=== PATIENT | male | born 1940 | race Caucasian/White ===

== ENCOUNTER 2017-02-21 13:36 | Inpatient (IN) | payer MEDICARE ==
[~2017-02-21] VITALS: Ht 180.3 cm; Wt 129.8 kg
[2017-03-17] MEDS ORDERED: CARV6.252 PO (09:30)
[2017-03-17] MEDS ORDERED: APIX2.5T PO (09:31)
[2017-03-17] MEDS ORDERED: MONT10TA2 PO (09:32)
[2017-03-17] MEDS ORDERED: LIPI20TA PO (09:32)
[2017-03-17] MEDS ORDERED: FLUT1INH INH (09:33)
[2017-03-17] MEDS ORDERED: ALBUAER3 INH (09:33)
[2017-03-17] MEDS ORDERED: RIVA1.5C PO (09:33)
[2017-03-20] MEDS ORDERED: TAMS5CAP PO (10:01)
[2017-03-20] MEDS ORDERED: AMIO200T PO (13:45)
[2017-03-20] MEDS ORDERED: MIRA25TA PO (13:45)
[2017-03-20] MEDS ORDERED: COLA100C PO (13:46)
[2017-03-27] MEDS ORDERED: METOPROLOL TARTRATE 25 MG TAB PO PRN (05:45)
[2017-03-27] MEDS ORDERED: CHLORHEXIDINE GLUCONATE 2 % 1 PACK (2 CLOTHS) TOPICAL PRN (05:45)
[2017-03-27] MEDS ORDERED: CHLORHEXIDINE GLUCONATE 4% SOLN 120 ML BTL TOPICAL SCH (05:45)
[2017-03-27] MEDS ORDERED: INSULIN HUMAN REGULAR 1,000 UNITS/10 ML VIAL SQ PRN (05:45)
[2017-03-27] MEDS ORDERED: POVIDONE IODINE 5% (ANTISEPSIS KIT) 4 APPLICATIONS EACH NARE PRN (05:45)
[2017-03-27] MEDS ORDERED: SODIUM CHLORID 0.9% 500 ML IV PRN (05:45)
[2017-03-27] MEDS ORDERED: ceFAZolin 2 GM PREMIX 50 ML IV SCH (05:45)
[2017-03-27] MEDS ORDERED: LACTATED RINGER'S 1000 ML IV PRN (05:45)
[2017-03-27 06:00] VITALS: BP 152/84; PULSE 70; RESP 20; TEMP 97.7; O2SAT 96
[2017-03-27] MEDS ORDERED: EXPAREL PERI-ARTICULAR INJECTION (TOTAL VOL. 100 ML) P-ARTICULR SCH ×2 (06:00)
[2017-03-27] MEDS ORDERED: TRANEXAMIC ACID INJ 1,161 MG in SODIUM CHLORIDE 0.9% INJ 100 ML IV SCH ×2 (06:00→09:00)
[2017-03-27] MEDS ORDERED: GENTAMICIN SULFATE 80 MG/2 ML VIAL ONE (06:16)
[2017-03-27] MEDS ORDERED: ACETAMINOPHEN 1000 MG/100 ML VIAL IV ONE (06:22)
[2017-03-27] MEDS ORDERED: DEXAMETHASONE SOD PHOS 4 MG/ML VIAL ONE (06:23)
[2017-03-27] MEDS ORDERED: FAMOTIDINE 20 MG/2 ML VIAL ONE (06:23)
[2017-03-27] MEDS ORDERED: SODIUM CHLORIDE 0.9% FLUSH 5 ML FLUSH IVF PRN (07:00)
[2017-03-27] MEDS ORDERED: ONDANSETRON HCL 4 MG/2 ML VIAL IVP PRN (07:00)
[2017-03-27] MEDS ORDERED: MAGNESIUM HYDROXIDE SUSP 30 ML CUP PO PRN (07:00)
[2017-03-27] MEDS ORDERED: TRANEXAMIC ACID INJ 0 MG in SODIUM CHLORIDE 0.9% INJ 100 ML IV SCH (07:00)
[2017-03-27] MEDS ORDERED: Post-op Orders (for Pharmacy) MISC XX ONE (07:00)
[2017-03-27] MEDS ORDERED: ZOLPIDEM TARTRATE 5 MG TAB PO PRN (07:00)
--- NOTE | 2017-03-27 07:02 | HHI.FF ---
Face to Face Verification Diagnosis: (1) Status post total right knee replacement Physical Therapy Knee: Total knee, Protocol: Right, Gait training, Full weight bearing Right LE Weight Bearing: WB as tolerated Right LE Range of Motion: Active ROM (AROM, AAROM, PROM, PRE. ROM goal is 0 to 135 degrees. ROM in OR was 0 to 140 degrees.) Nursing Nursing: Dressing changes Dressing Changes: Daily dressing change, Coverderm/Primapore Additional Instructions Remove steristrips on postop day 14. I have seen patient Ned Fortune on 03/27/17. My clinical findings support the need for the requested home health care services because: Ltd mobility - disease progression Limited ability to care for self High risk of falls I certify that my clinical findings support that this patient is homebound because: Post-op weakness Unsteady gait/balance Unsafe to leave home unassisted Scar Rodas MD (Charles) Mar 27, 2017 07:02
[2017-03-27] MEDS ORDERED: MORPHINE SULFATE 8 MG/ML INJ IV PUSH PRN (08:00)
[2017-03-27] MEDS ORDERED: ALBUTEROL SULFATE 90 MCG/ACT HFA 18 GM INHALER INH PRN (08:00)
[2017-03-27] MEDS: RIVASTIGMINE TARTRATE 1.5 MG CAP PO SCH ×2 (09:00→18:00)
[2017-03-27] MEDS: CARVEDILOL 6.25 MG TAB PO SCH ×2 (09:00→21:15)
[2017-03-27] MEDS: FLUTICASONE 100 MCG/VILANTEROL 25 MCG INHALER INH SCH (09:00)
[2017-03-27] MEDS: TOLTERODINE TARTRATE 2 MG CAP LA PO SCH (09:00)
[2017-03-27] MEDS: DOCUSATE SODIUM 100 MG CAP PO SCH (09:00)
[2017-03-27] MEDS: AMIODARONE 200 MG TAB PO SCH (09:00)
[2017-03-27] MEDS ORDERED: BUPIVACAINE HCL PF 0.5% 30 ML VIAL NERV BLOCK ONE (10:05)
[2017-03-27] MEDS ORDERED: DO NOT ADM ANY ANTICOAGULANT DRUGS PRN (10:09)
[2017-03-27] MEDS ORDERED: fentaNYL CITRATE 250 MCG/5 ML AMP ONE ×2 (10:36→10:37)
[2017-03-27] MEDS ORDERED: *morphine SULFATE 8 MG/ML PERIprocedure ONLY ONE ×2 (10:36→11:06)
[2017-03-27] MEDS ORDERED: MIDAZOLAM HCL 2 MG/2 ML VIAL ONE (10:36)
[2017-03-27] MEDS: LACTATED RINGER'S 1000 ML INJ 1,000 ML IV SCH ×2 (10:40→21:16)
[2017-03-27] MEDS: SODIUM CHLORIDE 0.9% FLUSH 5 ML FLUSH IVF SCH ×2 (10:40→21:15)
--- NOTE | 2017-03-27 10:51 | MP ---
cc: Deniz MONDRAGON. DATE OF SURGERY: 03/27/2017 PREOPERATIVE DIAGNOSIS Primary osteoarthritis, right knee POSTOPERATIVE DIAGNOSIS Primary osteoarthritis, right knee. OPERATION PERFORMED Right total knee arthroplasty with Josephine Triathlon prosthesis (uncemented). SURGEON Kong Mondragon MD COUNTY SUPERVISOR DEBI Vargas ANESTHESIA Attempted spinal with adductor canal block and general endotracheal anesthesia and local. INDICATIONS AND FINDINGS This 76-year-old man has had right knee pain at least for the past five months with progressive worsening of his pain and limitation of ambulation to about one block. He has stiffness and pain on motion. He has lateral pain more than medial. There is increased warmth, clicking, catching, giving-way and difficulty standing from a seated position. Treatment has included nonsteroidal anti-inflammatory agents, activity modification, analgesics, physical therapy and the use of ambulatory aids. This has not helped him. Imaging studies showed severe arthritis in the right knee going to [id number] in the lateral compartment on the PA flexion view especially. There is eburnation and posterior degeneration. Also noted is some vascular calcification in the popliteal vessels. Operative findings are consistent with the radiographic findings with there being severe arthritis in the lateral compartment down to exposed subchondral bone, especially posteriorly in the tibia. There is also some change in the medial compartment more than the patellofemoral compartment. The medial meniscus was macerated. The prosthesis used was a Josephine Triathlon prosthesis with the femur being a size 7 cruciate-retaining right Press-Fit femur, the tibial baseplate being a tritanium Press-Fit baseplate size 7, the spacer being an 11 mm cruciate-retaining X3 polyethylene spacer, and the patella being a Triathlon tritanium asymmetric patella size 38 x 11. PROCEDURE The patient was brought to the operating room and an adductor canal block was accomplished. An attempt at a spinal anesthetic was unsuccessful therefore a general endotracheal anesthetic was administered. He received prophylactic antibiotics in the form of Ancef 3 grams on arrival in the operating room and also received tranexamic acid. He was placed into a supine position on the operating table. A small bolster was under the right hip. A pneumatic tourniquet was placed about the upper right thigh but was not inflated during the procedure. The limb was then prepped with alcohol, Hibiclens and ChloraPrep and draped in the usual manner with the knee draped free. An appropriate timeout procedure was carried out. Local anesthesia was administered into the incision site prior to making the incision. The incision was then made from about three fingerbreadths above the superior medial pole of the patella down to the tibial tubercle. The incision was deepened through the subcutaneous tissues to the retinacular structures which were exposed medially and laterally. A medial retinacular incision was made from the superior medial pole of the patella down to the tibial tubercle and extended proximally splitting the quadriceps in the middle one-third. The patella was reflected. Medial and lateral dissection was carried out. The anterior cruciate ligament was excised. Medial and lateral meniscectomies were initiated. The infrapatellar fat pad was debulked. The posterior surface of the patella was excised with the oscillating saw. The patella protector was applied. The patella was slipped in the lateral gutter. The fenestration in the distal femur was then made with a drill followed by the proximal tibial fenestration for intermedullary referencing guides. The distal femoral cutting guide and jig were assembled for a 5-degree, 8 mm cut. The cutting block was stabilized with pins. The jig was removed. The distal femoral cut was completed with the oscillating saw taking care to prevent injury to ligamentous and neurovascular structures. The sizing guide was then positioned in place along Lakeland's line in the epicondylar axis. The size was determined to be a size 7. The four-in-one cutting block was positioned in place and stabilized with pins. Anterior and posterior cuts were made followed by posterior and anterior chamfer cuts. Osteophytes were trimmed. Medial and lateral meniscectomies were completed. The proximal tibial cutting guide and jig were then assembled and positioned appropriately for rotation. The jig was stabilized with pins. Cutting guide was positioned in place with the stylus off the lateral side. The cutting block was stabilized with pins. The depth of cut was verified and adjusted. The proximal tibial cut was then completed with the oscillating saw taking care to prevent injury to neurovascular and ligamentous structures. After the proximal tibia had been removed the spacer block determined this to be an 11 mm spacer. The tibial baseplate trial size 7 was chosen with an 11 mm spacer. With this in place the femoral component was impacted into place. The patella drill holes were made followed by placement of the trial patella. The knee was taken through a range of motion which was easily 0 degree extension to 140 degrees of flexion with excellent stability throughout the range. A minor release of the lateral retinaculum allowed the patella to track more centrally. The patella trial was removed. The femoral drill holes were made. The femoral trial was removed. The tibial spacer was removed. The bone plugs were placed in the distal femur and proximal tibia. The proximal tibial punch was impacted through its guide and then removed. The tibial drill guide was positioned and drill holes made. Local anesthesia was administered throughout the knee with bupivacaine liposomal. The tibial component was then impacted into place and seated appropriately after cleaning the cut ends of bone with pulse lavage. The spacer was inserted and impacted into place. The femoral component was then impacted into place and seated appropriately. The patella was positioned in place and tightened with the patella vise. The knee was taken through a range of motion. This was easily 0 degrees extension to 140 degrees of flexion. Drains were brought out the superolateral aspect of the suprapatellar pouch. Wound closure then commenced using 0 Vicryl interrupted [id number] sutures for closure of the retinacular and capsular structures as well as other fascial structures, 2-0 Vicryl interrupted simple sutures with buried knots for the subcutaneous tissues and 4-0 Monocryl continuous subcuticular closure for the skin. The wound was dressed with Steri-Strips followed by dry dressing, sterile Sof-Rol, cooling pad, further sterile Sof-Rol and Chase bandage from the base of the toes to mid thigh. The patient was transferred to the recovery room in satisfactory condition having tolerated the procedure well. Counts were correct. Specimens none. Estimated blood loss 300 mL. MD SHEY Herrera/CELESTINE /9:59 AM /10:39 AM
[2017-03-27] MEDS: KETOROLAC TROMETHAMINE 30 MG/ML (IVP) VIAL IVP SCH ×3 (11:24→21:17)
--- NOTE | 2017-03-27 11:36 | RADRPT ---
EXAM DATE/TIME: 03/27/2017 11:09 [facility] COMPARISON: No previous studies available for comparison. INDICATIONS : Right knee replacement. MEDICAL HISTORY : Carcinoma, prostatic. Chronic obstructive pulmonary disease. Osteoarthritis. SURGICAL HISTORY : Pacemaker. Appendectomy. ENCOUNTER: Initial ACUITY: 1 day PAIN SCORE: Non-responsive. LOCATION: Right knee. FINDINGS: Two view examination of the right knee demonstrates knee arthroplasty. No evidence of hardware loosen ing, fracture or dislocation. Surgical drain in place. Vascular calcifications. CONCLUSION: Right knee arthroplasty. Isidoro Sena MD on March 27, 2017 at 11:34 Board Certified Radiologist. This report was verified electronically.
[2017-03-27] MEDS ORDERED: PROPOFOL 200 MG/20 ML AMP IV ONE (12:23)
[2017-03-27] MEDS ORDERED: NEOSTIGMINE 3 MG/3 ML SYR IV ONE (12:23)
[2017-03-27] MEDS ORDERED: LACTATED RINGER'S 1000 ML INJ 1,000 ML IV ONE (12:24)
[2017-03-27] MEDS ORDERED: ONDANSETRON HCL 4 MG/2 ML VIAL IV PUSH ONE (12:24)
[2017-03-27] MEDS ORDERED: *ONDANSETRON 4 MG VIAL PERIprocedural Use ONLY ONE (14:30)
[2017-03-27 16:18] VITALS: BP 151/69; PULSE 70; RESP 18; TEMP 95.5; O2SAT 92
--- NOTE | 2017-03-27 18:24 | PD.CONS ---
HPI Service [facility] Consult Requested By Dr. Rodas Reason for Consult Medical management Primary Care Physician Jase Dixon MD Diagnoses: History of Present Illness This a pleasant 76-year-old white male with significant past medical history of A. fib, CHF, AICD pacemaker, TIA, PARTS ANALYST shunt, prostate cancer. Patient has history of osteoarthritis of the right knee, he was admitted and underwent right total knee arthroplasty. Patient tolerated procedure well, he has minimal pain. Patient's draw press operator is Dr. Mary, he was cleared for surgery. Patient is on Eliquis, he stopped medication several days in preparation for surgery. Hospitalist services are requested for medical management. Review of Systems Constitutional: DENIES: Diaphoretic episodes, Fatigue, Fever, Weight gain, Weight loss, Chills, Dizziness, Change in appetite, Night Sweats Endocrine: DENIES: Heat/cold intolerance, Polydipsia, Polyuria, Polyphagia Eyes: DENIES: Blurred vision, Diplopia, Eye inflammation, Eye pain, Vision loss , Photosensitivity, Double Vision Ears, nose, mouth, throat: DENIES: Tinnitus, Hearing loss, Vertigo, Nasal discharge, Oral lesions, Throat pain, Hoarseness, Ear Pain, Running Nose, Epistaxis, Sinus Pain, Toothache, Odynophagia Respiratory: DENIES: Apneas, Cough, Snoring, Wheezing, Hemoptysis, Sputum production, Shortness of breath Cardiovascular: DENIES: Chest pain, Palpitations, Syncope, Dyspnea on Exertion , PND, Lower Extremity Edema, Orthopnea, Claudication Gastrointestinal: DENIES: Abdominal pain, Black stools, Bloody stools, Constipation, Diarrhea, Nausea, Vomiting, Difficulty Swallowing, Anorexia Genitourinary: DENIES: Sexual dysfunction, Urinary frequency, Urinary incontinence, Urgency, Hematuria, Dysuria, Nocturia, Penile Discharge, Testicular Pain, Testicular Swelling Musculoskeletal: COMPLAINS OF: Joint pain Integumentary: DENIES: Abnormal pigmentation, Nail changes, Pruritus, Rash Hematologic/lymphatic: DENIES: Bruising, Lymphadenopathy Immunologic/allergic: DENIES: Eczema, Urticaria Neurologic: DENIES: Abnormal gait, Headache, Localized weakness, Paresthesias, Seizures, Speech Problems, Tremor, Poor Balance Psychiatric: DENIES: Anxiety, Confusion, Mood changes, Depression, Hallucinations, Agitation, Suicidal Ideation, Homicidal Ideation, Delusions Past Family Social History Past Medical History Hypertension A. fib CHF AICD and pacemaker TIA PARTS ANALYST shunt Prostate cancer Osteoarthritis asthma COPD Past Surgical History AICD and pacemaker insertion Appendectomy Left wrist surgery PARTS ANALYST shunt insertion Reported Medications Reported Meds & Active Scripts Active Reported Colace (Docusate Sodium) 100 Mg Capsule 100 Mg PO DAILY Myrbetriq (Mirabegron) 25 Mg Tab 25 Mg PO DAILY Amiodarone (Amiodarone HCl) 200 Mg Tab 200 Mg PO DAILY Flomax (Tamsulosin HCl) 0.4 Mg Cap 0.8 Mg PO HS Rivastigmine 1.5 Mg Cap 3 Mg PO BIDPC Breo Ellipta Inh (Fluticasone/Vilanterol) 100-25 Mcg/Act Inh 1 Puff INH DAILY Use daily at the same time. Proair Hfa 8.5 GM Inh (Albuterol Sulfate) 90 Mcg/Act Aer 1 Puff INH Q4H PRN 108 mcg/actuation Lipitor (Atorvastatin Calcium) 20 Mg Tab 20 Mg PO HS Singulair (Montelukast Sodium) 10 Mg Tab 10 Mg PO HS Eliquis (Apixaban) 2.5 Mg Tab 5 Mg PO BID Carvedilol 6.25 Mg Tab 6.25 Mg PO BID Allergies: Coded Allergies: Cipro (Verified Allergy, Severe, Rash, 03/27/17) Levaquin (Verified Allergy, Severe, Rash, 03/27/17) Active Ordered Medications Inpatient Medications Acetaminophen/ Hydrocodone Bitart (Anton 7.5-325 Mg) 2 tab Q4H PRN PO PAIN SCALE 5 TO 10; Start 03/27/17 at 07:00 Albuterol Sulfate (Ventolin Hfa Inh) 1 puff Q4H PRN INH SHORTNESS OF BREATH; Start 03/27/17 at 08:00 Amiodarone HCl (Cordarone) 200 mg DAILY PO ; Start 03/27/17 at 09:00 Aspirin (Ecotrin Ec) 81 mg BID PO ; Start 03/28/17 at 09:00 Atorvastatin Calcium (Lipitor) 20 mg HS PO ; Start 03/27/17 at 21:00 Bupivacaine Liposome 20 ml/ Sodium Chloride 100 ml @ 200 mls/hr ONCE P- ARTICULR Last administered on 03/27/17t 07:43; Start 03/27/17 at 06:00; Stop at 12:00; Status DC Carvedilol (Coreg) 6.25 mg BID PO ; Start 03/27/17 at 09:00 Cefazolin Sodium/ Dextrose 50 ml @ 100 mls/hr MALT HOUSE LOADER IV Last administered on 03/27/17 07:06; Start 03/27/17 at 05:45; Stop 03/30/17 at 05:44 Cefazolin Sodium/ Sodium Chloride (Ancef Inj/NS Inj) 100 ml @ 200 mls/hr Q6H IV Last administered on 03/27/17 13:40; Start 03/27/17 at 14:00; Stop at 02:29 Chlorhexidine Gluconate (Chlorhexidine 2% Cloth) 3 pack MALT [employer]SE LO[employer]ER PRN TOPICAL SEE LABEL COMMENTS Last administered on 03/27/17 05:30; Start 03/27/17 at 05:45 ; Stop 03/30/17 at 05:44 Chlorhexidine Gluconate 1 applic 1 applic ONCE TOPICAL Last administered on 05:40; Start 03/27/17 at 05:45; Stop 03/30/17 at 05:44 Docusate Sodium (Colace) 100 mg DAILY PO ; Start 03/27/17 at 09:00 Fluticasone/ Vilanterol (Breo Ellipta 100-25 Inh) 1 puff DAILY INH ; Start 03/27 at 09:00 Insulin Human Regular (NovoLIN R INJ) See Protocol Table ... MALT HOUSE LOADER PRN SQ SEE PROTOCOL TABLE; Start 03/27/17 at 05:45; Stop 03/30/17 at 05:44 IV Flush (NS Flush) 2 ml UNSCH PRN IVF FLUSH AFTER USING IV ACCESS; Start 03/27 at 07:00 IV Flush 2 ml 2 ml BID IVF Last administered on 03/27/17 10:40; Start at 09:00 Ketorolac Tromethamine (Toradol Inj) 15 mg Q6H IVP Last administered on 11:24; Start 03/27/17 at 08:00; Stop 03/29/17 at 02:01 Lactated Ringer's (Lr 1000 ml Inj) 1,000 ml @ 80 mls/hr [id number] IV Last administered on 03/27/17 10:40; Start 03/27/17 at 08:00 Magnesium Hydroxide (Milk Of Magnotto Liq) 30 ml DAILY PRN PO CONSTIPATION; Start 03/27/17 at 07:00 Metoprolol Tartrate (Lopressor) 25 mg MALT HOUSE LOADER PRN PO SEE LABEL COMMENTS; Start 03/27/17 at 05:45; Stop 03/30/17 at 05:44 Miscellaneous Information ALL NURSING DEPARTME... UNSCH PRN .XX SEE LABEL COMMENTS; Start 03/27/17 at 10:09; Stop 03/28/17 at 10:08 Miscellaneous Information (Post-op Orders (for Pharmacy)) STAT ONCE XX ; Start 03/27/17 at 07:00; Stop 03/27/17 at 08:00; Status DC Montelukast Sodium (Singulair) 10 mg HS PO ; Start 03/27/17 at 21:00 Morphine Sulfate (Morphine Inj) 4 mg Q3H PRN IV PUSH BREAKTHROUGH PAIN; Start 03/27/17 at 08:00 Ondansetron HCl (Zofran Inj) 4 mg Q6H PRN IVP NAUSEA OR VOMITING; Start at 07:00 Povidone Iodine (Betadine 5% Antisepsis Kit) 1 applic MALT [employer]SE LOADER PRN EACH NARE SEE LABEL COMMENTS Last administered on 03/27/17t 05:50; Start 03/27/17 at 05:45 ; Stop 03/30/17 at 05:44 Rivastigmine (Exelon) 3 mg BIDPC PO ; Start 03/27/17 at 09:00 Sodium Chloride (NS 500 ml Inj) 500 ml @ 30 mls/hr [id number] PRN IV SEE LABEL COMMENTS; Start 03/27/17 at 05:45; Stop 03/30/17 at 05:44 Tamsulosin HCl (Flomax) 0.8 mg HS PO ; Start 03/27/17 at 21:00 Tolterodine Tartrate (Detrol La) 2 mg DAILY PO ; Start 03/27/17 at 09:00 Tranexamic Acid 1161 mg/Sodium Chloride 111.61 ml @ 200 mls/ hr ONCE IV Last administered on 03/27/17t 10:43; Start 03/27/17 at 09:00; Stop 03/27/17 at 15:00 ; Status DC Zolpidem Tartrate (Ambien) 5 mg HS PRN PO SLEEP; Start 03/27/17 at 07:00 Family History Reviewed, noncontributory Social History , lives at home with . Has grown children. Drinks a small amount of liquor every night, 6 ounces. No substance abuse. No tobacco abuse Physical Exam Vital Signs Vital Signs Date Time Temp Pulse Resp B/P Pulse Ox O2 Delivery O2 Flow Rate FiO2 03/27/17 16:18 95.5 70 18 151/69 92 03/27/17 15:40 97.6 69 15 146/67 98 Nasal Cannula 2 03/27/17 15:00 69 16 119/61 98 Nasal Cannula 2 03/27/17 14:00 69 16 167/67 98 Nasal Cannula 2 03/27/17 13:00 69 24 140/67 97 Nasal Cannula 2 03/27/17 12:00 70 14 145/72 96 Nasal Cannula 2 03/27/17 11:45 69 12 116/52 95 Nasal Cannula 2 03/27/17 11:30 69 12 123/56 95 Nasal Cannula 2 03/27/17 11:15 69 19 139/63 95 Nasal Cannula 2 03/27/17 11:00 69 19 135/67 96 Nasal Cannula 2 03/27/17 10:45 69 12 144/65 96 Nasal Cannula 2 03/27/17 10:30 69 14 136/63 95 Nasal Cannula 2 03/27/17 10:15 97.5 68 12 145/67 97 Nasal Cannula 2 03/27/17 06:00 97.7 70 20 152/84 96 Physical Exam GENERAL: This is a well-nourished, well-developed patient, in no apparent distress. SKIN: No rashes, ecchymoses or lesions. Cool and dry. HEAD: Atraumatic. Normocephalic. No temporal or scalp tenderness. EYES: Pupils equal round and reactive. Extraocular motions intact. No scleral icterus. No injection or drainage. ENT: Nose without bleeding, purulent drainage or septal hematoma. Throat without erythema, tonsillar hypertrophy or exudate. Uvula midline. Airway patent. NECK: Trachea midline. No JVD or lymphadenopathy. Supple, nontender, no meningeal signs. CARDIOVASCULAR: Regular rate and rhythm without murmurs, gallops, or rubs. RESPIRATORY: Clear to auscultation. Breath sounds equal bilaterally. No wheezes , rales, or rhonchi. GASTROINTESTINAL: Abdomen soft, non-tender, nondistended. No hepato-splenomegaly , or palpable masses. No guarding. MUSCULOSKELETAL: Right knee dressing dry and intact. Intact sensation to the right foot. Hemovac drain in place. Right leg on CPM. Able to dorsiflex right ankle. Bilateral pedal pulses 2+ bilaterally. NEUROLOGICAL: Awake, alert oriented 3. No focal deficits are noted. Laboratory Laboratory Tests Test 03/27/17 05:45 Blood Type O POSITIVE Antibody Screen NEGATIVE Blood Bank Comment Imaging Last Impressions Knee X-Ray 03/27/17 0642 Signed Impressions: Service Date/Time: Monday, March 27, 2017 11:09 - CONCLUSION: Right knee arthroplasty. Isidoro Sena MD A/P Diagnosis: (1) Status post total right knee replacement (2) Primary osteoarthritis of right knee (3) Atrial fibrillation (4) CHF (congestive heart failure) (5) HTN (hypertension) (6) Pacemaker (7) COPD (chronic obstructive pulmonary disease) (8) Hx TIA/stroke w/o resid Assessment and Plan Thank you for this consultation, we will assist with medical management 76-year-old male with history of osteoarthritis, status post right total knee arthroplasty. -Continue postoperative orthopedic care Aspirin for DVT prophylaxis per Dr. Rodas's protocol. We will find out when he is okay to restart Eliquis. -Pain management PRN -Physical therapy -Continue with antiemetics as needed -Bowel regimen Chronic congestive heart failure, stable Has AICD pacemaker History of A. fib, on Eliquis. -Eliquis currently on hold, we will find out when is okay to resume per orthopedic surgeon. -Continue with amiodarone and carvedilol -Monitor for signs and symptoms of fluid overload, DC IV fluids in the morning -We'll place on continuous cardiac telemetry Hypertension, stable Continue home medications Hyperlipidemia Continue home medications History of TIA Continue with baby aspirin -Continue with statins COPD, stable Continue with Ventolin inhaler when necessary Home medications are reviewed, already initiated CBC and BMP in the morning Plan of care has been discussed with the patient and his , their questions answered detail. Plan of care discussed with attending and registered nurse. Further management of the patient will be dependent on the hospital course This patient was seen by myself and Dr. Sims, this consultation is written on his behalf Problem Qualifiers (1) Atrial fibrillation: Qualified Code: I48.91 - Atrial fibrillation, unspecified type (2) CHF (congestive heart failure): Qualified Code: I50.9 - Chronic congestive heart failure, unspecified congestive heart failure type (3) HTN (hypertension): Qualified Code: I10 - Essential hypertension (4) COPD (chronic obstructive pulmonary disease): Qualified Code: J44.9 - Chronic obstructive pulmonary disease, unspecified COPD type Sally Viramontes [facility] Mar 27, 2017 18:24
[2017-03-27 19:26] VITALS: O2SAT 92
[2017-03-27 20:00] VITALS: BP 147/67; PULSE 70; RESP 17; TEMP 97.6; O2SAT 95
[2017-03-27] MEDS: ATORVASTATIN 20 MG TAB PO SCH (21:15)
[2017-03-27] MEDS: MONTELUKAST SODIUM 10 MG TAB PO SCH (21:15)
[2017-03-27] MEDS: TAMSULOSIN HCL 0.4 MG CAP PO SCH (21:15)
[2017-03-28] VITALS (8 sets, daily range): BP systolic 119–148; BP diastolic 58–69; PULSE 69–70; RESP 16–18; TEMP 96–98; O2SAT 94–98
[2017-03-28] MEDS: KETOROLAC TROMETHAMINE 30 MG/ML (IVP) VIAL IVP SCH ×4 (02:46→20:26)
--- NOTE | 2017-03-28 06:11 | PD.ORT.PN ---
Subjective Post Op Day #: 1 Subjective Remarks He is doing well. Only walked with PT, but stood to void. Not much pain. Range of Motion 0 to 95 degrees. Distance Walked 4 feet with PT, then static standing. Objective Vitals Vital Signs Date Time Temp Pulse Resp B/P Pulse Ox O2 Delivery O2 Flow Rate FiO2 03/28/17 04:25 96.5 70 18 135/67 96 03/28/17 00:45 96.0 70 18 132/60 96 03/27/17 20:00 97.6 70 17 147/67 95 03/27/17 19:26 92 21 03/27/17 18:50 Room Air 03/27/17 16:18 95.5 70 18 151/69 92 03/27/17 15:40 97.6 69 15 146/67 98 Nasal Cannula 2 03/27/17 15:00 69 16 119/61 98 Nasal Cannula 2 03/27/17 14:00 69 16 167/67 98 Nasal Cannula 2 03/27/17 13:00 69 24 140/67 97 Nasal Cannula 2 03/27/17 12:00 70 14 145/72 96 Nasal Cannula 2 03/27/17 11:45 69 12 116/52 95 Nasal Cannula 2 03/27/17 11:30 69 12 123/56 95 Nasal Cannula 2 03/27/17 11:15 69 19 139/63 95 Nasal Cannula 2 03/27/17 11:00 69 19 135/67 96 Nasal Cannula 2 03/27/17 10:45 69 12 144/65 96 Nasal Cannula 2 03/27/17 10:30 69 14 136/63 95 Nasal Cannula 2 03/27/17 10:15 97.5 68 12 145/67 97 Nasal Cannula 2 I/O 03/27/17 03/27/17 03/27/17 03/28/17 03/28/17 03/28/17 06:59 14:59 22:59 06:59 14:59 22:59 Intake Total 900 ml 1484 ml Output Total 1300 ml 160 ml Balance -400 ml 1324 ml Intake Oral 340 ml IV Total 1144 ml Other 900 ml Output Urine Total 1000 ml 100 ml Drainage Total 60 ml Autotransfusion 300 ml Bladder Scan Volume Amount 627 ml # Bowel Movements 0 Imaging Last 24 hours Impressions Knee X-Ray 03/27/17 0674 Signed Impressions: Service Date/Time: Monday, March 27, 2017 11:09 - CONCLUSION: Right knee arthroplasty. Isidoro Sena MD Objective Remarks Resting comfortably, supine in bed in the CPM. The neurovascular status is intact. The dressing is dry and intact, Assessment & Plan Ortho Post Op Day #: 1 Problem List: (1) Status post total right knee replacement Plan: Continue postop care and PT. Assessment and Plan Condition: Good. Orthopaedically stable. DVT prophylaxis: TEDs, sequentials, resume Eliquis. Discharge plans: Home with [facility]. Has appt. Rx: Norco7.5/325. Scar Rodas MD (Charles) Mar 28, 2017 06:11
[2017-03-28] MEDS ORDERED: HYDR-3580 PO (06:29)
[2017-03-28 07:25] LABS: HEMATOCRIT 37.4 % (39.0-51.0); REVIEW FLAG FINAL
[2017-03-28 07:46] LABS: BICARBONATE 28.4 MEQ/L (21.0-32.0); MAGNESIUM 2.1 MG/DL (1.5-2.5); POTASSIUM 4.2 MEQ/L (3.5-5.1)
[2017-03-28] MEDS: RIVASTIGMINE TARTRATE 1.5 MG CAP PO SCH ×2 (09:00→17:43)
[2017-03-28] MEDS: SODIUM CHLORIDE 0.9% FLUSH 5 ML FLUSH IVF SCH ×2 (09:00→20:28)
[2017-03-28] MEDS: LACTATED RINGER'S 1000 ML INJ 1,000 ML IV SCH ×2 (09:00→21:30)
[2017-03-28] MEDS: FLUTICASONE 100 MCG/VILANTEROL 25 MCG INHALER INH SCH (09:00)
[2017-03-28] MEDS ORDERED: ASPIRIN EC 81 MG TABEC PO SCH (09:00)
[2017-03-28] MEDS: AMIODARONE 200 MG TAB PO SCH (09:06)
[2017-03-28] MEDS: TOLTERODINE TARTRATE 2 MG CAP LA PO SCH (09:06)
[2017-03-28] MEDS: DOCUSATE SODIUM 100 MG CAP PO SCH (09:06)
[2017-03-28] MEDS: CARVEDILOL 6.25 MG TAB PO SCH ×2 (09:07→20:26)
[2017-03-28] MEDS: APIXABAN 5 MG TABLET PO SCH ×2 (09:07→20:27)
--- NOTE | 2017-03-28 13:54 | HHI.PR ---
Subjective Remarks Sitting up in chair Minimal pain Anxious to go home, was told by Dr. Rodas that he may go home this afternoon Still has drain in place Had problems with urinary retention last night, require straight catheter x2, patient is now voiding okay. No BM yet No fever A chest pain or shortness of breath at bsd Objective Objective Results - Vital Signs Date Time Temp Pulse Resp B/P Pulse Ox O2 Delivery O2 Flow Rate FiO2 03/28/17 12:00 97.0 70 16 119/58 95 03/28/17 08:00 97.3 70 16 148/69 98 03/28/17 04:25 96.5 70 18 135/67 96 03/28/17 00:45 96.0 70 18 132/60 96 03/27/17 20:00 97.6 70 17 147/67 95 03/27/17 19:26 92 21 03/27/17 18:50 Room Air 03/27/17 16:18 95.5 70 18 151/69 92 03/27/17 15:40 97.6 69 15 146/67 98 Nasal Cannula 2 03/27/17 15:00 69 16 119/61 98 Nasal Cannula 2 03/27/17 14:00 69 16 167/67 98 Nasal Cannula 2 I/O 03/27/17 03/27/17 03/27/17 03/28/17 03/28/17 03/28/17 07:00 15:00 23:00 07:00 15:00 23:00 Intake Total 900 ml 1484 ml 1040 ml Output Total 1300 ml 160 ml 130 ml Balance -400 ml 1324 ml 910 ml Intake Oral 340 ml 240 ml IV Total 1144 ml 800 ml Other 900 ml Output Urine Total 1000 ml 100 ml 50 ml Drainage Total 60 ml 80 ml Autotransfusion 300 ml Bladder Scan Volume Amount 627 ml # Bowel Movements 0 Result Diagram: 03/28/17 0650 03/28/17 0650 Imaging Last Impressions Knee X-Ray 03/27/17 0654 Signed Impressions: Service Date/Time: Monday, March 27, 2017 11:09 - CONCLUSION: Right knee arthroplasty. 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 SKIN: No rashes, ecchymoses or lesions. Cool and dry. HEAD: Atraumatic. Normocephalic. No temporal or scalp tenderness. EYES: Pupils equal round and reactive. Extraocular motions intact. No scleral icterus. No injection or drainage. ENT: Nose without bleeding, purulent drainage or septal hematoma. Throat without erythema, tonsillar hypertrophy or exudate. Uvula midline. Airway patent. NECK: Trachea midline. No JVD or lymphadenopathy. Supple, nontender, no meningeal signs. CARDIOVASCULAR: Regular rate and rhythm without murmurs, gallops, or rubs. RESPIRATORY: Clear to auscultation. Breath sounds equal bilaterally. No wheezes , rales, or rhonchi. GASTROINTESTINAL: Abdomen soft, non-tender, nondistended. No hepato-splenomegaly , or palpable masses. No guarding. MUSCULOSKELETAL: Right knee dressing dry and intact. Intact sensation to the right foot. Hemovac drain in place. Right leg on CPM. Able to dorsiflex right ankle. Bilateral pedal pulses 2+ bilaterally. NEUROLOGICAL: Awake, alert oriented 3. No focal deficits are noted. Urinary Catheter: No Vascular Central Line Catheter: No A/P Diagnosis: (1) Status post total right knee replacement (2) Primary osteoarthritis of right knee (3) Atrial fibrillation (4) CHF (congestive heart failure) (5) HTN (hypertension) (6) Pacemaker (7) COPD (chronic obstructive pulmonary disease) (8) Hx TIA/stroke w/o resid Assessment and Plan 76-year-old male with history of osteoarthritis, status post right total knee arthroplasty. -Continue postoperative orthopedic care Aspirin for DVT prophylaxis per Dr. Rodas's protocol. We will find out when he is okay to restart Eliquis. -Pain management PRN -Physical therapy -Continue with antiemetics as needed -Bowel regimen Chronic congestive heart failure, stable Has AICD pacemaker History of A. fib, on Eliquis. -Has been started on Eliquis -Continue with amiodarone and carvedilol -Monitor for signs and symptoms of fluid overload, DC IV fluids in the morning -continuous cardiac telemetry Hypertension, stable Continue home medications Hyperlipidemia Continue home medications History of TIA Continue with baby aspirin -Continue with statins COPD, stable Continue with Ventolin inhaler when necessary Urinary retention, likely secondary to anesthesia Requires straight catheterization, patient now voiding -Continue Flomax SCDs and Eliquis for DVT prophylaxis CBC and BMP reviewed stable continue with PT CM working on dc planning, pt. anxious to go home today. Was told by Dr. Rodas poss dc today D/W pt and D/W Dr. Sims D/W RN D/W CM This patient was seen by myself and Dr. Sims, this note is written on his behalf Problem Qualifiers (1) Atrial fibrillation: Qualified Code: I48.91 - Atrial fibrillation, unspecified type (2) CHF (congestive heart failure): Qualified Code: I50.9 - Chronic congestive heart failure, unspecified congestive heart failure type (3) HTN (hypertension): Qualified Code: I10 - Essential hypertension (4) COPD (chronic obstructive pulmonary disease): Qualified Code: J44.9 - Chronic obstructive pulmonary disease, unspecified COPD type Sally Viramontes Mar 28, 2017 13:54
[2017-03-28] MEDS: ATORVASTATIN 20 MG TAB PO SCH (20:27)
[2017-03-28] MEDS: MONTELUKAST SODIUM 10 MG TAB PO SCH (20:27)
[2017-03-28] MEDS: TAMSULOSIN HCL 0.4 MG CAP PO SCH (20:27)
[2017-03-28] MEDS ORDERED: DOCUSATE SODIUM 100 MG CAP PO SCH (21:00)
[2017-03-29] VITALS: BP 142/67; PULSE 70; RESP 18; TEMP 97.2; O2SAT 94
[2017-03-29] MEDS: KETOROLAC TROMETHAMINE 30 MG/ML (IVP) VIAL IVP SCH (02:23)
[2017-03-29 04:00] VITALS: BP 144/65; PULSE 70; RESP 18; TEMP 97.9; O2SAT 93
[2017-03-29] MEDS: ACETAMINOPHEN/HYDROcodone 325 MG/7.5 MG TAB PO PRN ×4 (04:14→20:58)
[2017-03-29 07:00] VITALS: BP 121/59; PULSE 70; RESP 18; TEMP 98.9; O2SAT 92
[2017-03-29 07:00] LABS: REVIEW FLAG FINAL
--- NOTE | 2017-03-29 07:04 | PD.ORT.PN ---
Subjective Post Op Day #: 2 Subjective Remarks He is doing relatively well. There are issues with balance. Not much pain. Range of Motion 0 to 98 degrees. Distance Walked 20, then 10 feet in AM; 15 feet in PM. Balance is suboptimal. Objective Vitals Vital Signs Date Time Temp Pulse Resp B/P Pulse Ox O2 Delivery O2 Flow Rate FiO2 03/29/17 04:00 97.9 70 18 144/65 93 03/29/17 00:00 97.2 70 18 142/67 94 03/28/17 20:38 69 03/28/17 19:45 98.0 70 18 130/59 94 03/28/17 16:00 98.0 70 16 141/61 94 03/28/17 12:00 97.0 70 16 119/58 95 03/28/17 08:50 98 03/28/17 08:00 97.3 70 16 148/69 98 I/O 03/28/17 03/28/17 03/28/17 03/29/17 03/29/17 03/29/17 07:00 15:00 23:00 07:00 15:00 23:00 Intake Total 1040 ml 480 ml 240 ml 240 ml Output Total 130 ml 240 ml 450 ml Balance 910 ml 240 ml 240 ml -210 ml Intake Oral 240 ml 480 ml 240 ml 240 ml IV Total 800 ml Output Urine Total 50 ml 450 ml Drainage Total 80 ml 240 ml Bladder Scan Volume Amount 627 ml # Voids 3 1 # Bowel Movements 0 0 0 Result Diagram: 03/28/17 0650 03/28/17 0650 Imaging Last 24 hours Impressions Knee X-Ray 03/27/17 0654 Signed Impressions: Service Date/Time: Monday, March 27, 2017 11:09 - CONCLUSION: Right knee arthroplasty. Isidoro Sena MD Objective Remarks Resting comfortably, out of bed in the chair. The neurovascular status is intact. The dressing is dry and intact. Assessment & Plan Ortho Post Op Day #: 2 Problem List: (1) Status post total right knee replacement Plan: Continue postop care and PT. Assessment and Plan Condition: Good. Orthopaedically stable. DVT prophylaxis: TEDs, sequentials, resume Eliquis. Discharge plans: Home with [facility]. Has appt. Rx: Norco7.5/325. Scar Rodas MD ([place]) Mar 29, 2017 07:04
[2017-03-29] MEDS: TOLTERODINE TARTRATE 2 MG CAP LA PO SCH (08:36)
[2017-03-29] MEDS: CARVEDILOL 6.25 MG TAB PO SCH ×2 (08:36→20:57)
[2017-03-29] MEDS: APIXABAN 5 MG TABLET PO SCH ×2 (08:36→20:57)
[2017-03-29] MEDS: DOCUSATE SODIUM 100 MG CAP PO SCH (08:36)
[2017-03-29] MEDS: FLUTICASONE 100 MCG/VILANTEROL 25 MCG INHALER INH SCH (08:36)
[2017-03-29] MEDS: AMIODARONE 200 MG TAB PO SCH (08:37)
[2017-03-29] MEDS: SODIUM CHLORIDE 0.9% FLUSH 5 ML FLUSH IVF SCH ×2 (08:37→21:07)
[2017-03-29] MEDS: LACTATED RINGER'S 1000 ML INJ 1,000 ML IV SCH ×2 (08:39→21:07)
[2017-03-29] MEDS: RIVASTIGMINE TARTRATE 1.5 MG CAP PO SCH ×2 (08:39→18:00)
--- NOTE | 2017-03-29 11:10 | HHI.PR ---
Subjective Remarks pt. more awake, oriented x 3 states he doesn't feel ready to go home with [facility] wants to try PT again today was unsteady yesterday also voicing concern no fever no cp no sob no bm yet requesting eval for SNF as a back up if he can't do well with PT today Objective Objective Results - Vital Signs Date Time Temp Pulse Resp B/P Pulse Ox O2 Delivery O2 Flow Rate FiO2 03/29/17 07:00 98.9 70 18 121/59 92 03/29/17 04:00 97.9 70 18 144/65 93 03/29/17 00:00 97.2 70 18 142/67 94 03/28/17 20:38 69 03/28/17 19:45 98.0 70 18 130/59 94 03/28/17 16:00 98.0 70 16 141/61 94 03/28/17 12:00 97.0 70 16 119/58 95 I/O 03/28/17 03/28/17 03/28/17 03/29/17 03/29/17 03/29/17 07:00 15:00 23:00 07:00 15:00 23:00 Intake Total 1040 ml 480 ml 240 ml 240 ml Output Total 130 ml 240 ml 450 ml Balance 910 ml 240 ml 240 ml -210 ml Intake Oral 240 ml 480 ml 240 ml 240 ml IV Total 800 ml Output Urine Total 50 ml 450 ml Drainage Total 80 ml 240 ml Bladder Scan Volume Amount 627 ml # Voids 3 1 # Bowel Movements 0 0 0 Result Diagram: 03/29/17 0548 03/28/17 0650 Imaging Last Impressions Knee X-Ray 03/27/17 0654 Signed Impressions: Service Date/Time: Monday, March 27, 2017 11:09 - CONCLUSION: Right knee arthroplasty. 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 SKIN: No rashes, ecchymoses or lesions. Cool and dry. HEAD: Atraumatic. Normocephalic. No temporal or scalp tenderness. EYES: Pupils equal round and reactive. Extraocular motions intact. No scleral icterus. No injection or drainage. ENT: Nose without bleeding, purulent drainage or septal hematoma. Throat without erythema, tonsillar hypertrophy or exudate. Uvula midline. Airway patent. NECK: Trachea midline. No JVD or lymphadenopathy. Supple, nontender, no meningeal signs. CARDIOVASCULAR: Regular rate and rhythm without murmurs, gallops, or rubs. RESPIRATORY: Clear to auscultation. Breath sounds equal bilaterally. No wheezes , rales, or rhonchi. GASTROINTESTINAL: Abdomen soft, non-tender, nondistended. No hepato-splenomegaly , or palpable masses. No guarding. MUSCULOSKELETAL: Right knee dressing dry and intact. Intact sensation to the right foot. Hemovac drain in place. Right leg on CPM. Able to dorsiflex right ankle. Bilateral pedal pulses 2+ bilaterally. NEUROLOGICAL: Awake, alert oriented 3. No focal deficits are noted. Urinary Catheter: No Vascular Central Line Catheter: No A/P Diagnosis: (1) Status post total right knee replacement (2) Primary osteoarthritis of right knee (3) Atrial fibrillation (4) CHF (congestive heart failure) (5) HTN (hypertension) (6) Pacemaker (7) COPD (chronic obstructive pulmonary disease) (8) Hx TIA/stroke w/o resid Assessment and Plan 76-year-old male with history of osteoarthritis, status post right total knee arthroplasty. -Continue postoperative orthopedic care Restarted on Eliquis, continue for DVT prophylaxis. -Pain management PRN -Physical therapy -Continue with antiemetics as needed -Bowel regimen Chronic congestive heart failure, stable Has AICD pacemaker History of A. fib, on Eliquis. -continue with Eliquis -Continue with amiodarone and carvedilol -continuous cardiac telemetry Hypertension, stable Continue home medications Hyperlipidemia Continue home medications History of TIA Continue with baby aspirin -Continue with statins COPD, stable Continue with Ventolin inhaler when necessary Urinary retention, likely secondary to anesthesia Requires straight catheterization, patient now voiding -Continue Flomax SCDs and Eliquis for DVT prophylaxis continue with PT CM for dc planning, d/w need to eval for SNF, requesting [facility]. Will check their TCU poss dc today with [facility] if he does well with PT if he goes to TCU, will need one more night D/W pt and D/W Dr. Sims D/W RN D/W CM This patient was seen by myself and Dr. Sims, this note is written on his behalf Problem Qualifiers (1) Atrial fibrillation: Qualified Code: I48.91 - Atrial fibrillation, unspecified type (2) CHF (congestive heart failure): Qualified Code: I50.9 - Chronic congestive heart failure, unspecified congestive heart failure type (3) HTN (hypertension): Qualified Code: I10 - Essential hypertension (4) COPD (chronic obstructive pulmonary disease): Qualified Code: J44.9 - Chronic obstructive pulmonary disease, unspecified COPD type Sally Viramontes Mar 29, 2017 11:09
[2017-03-29 11:34] VITALS: BP 132/65; PULSE 70; RESP 18; TEMP 95.6; O2SAT 96
[2017-03-29 15:45] VITALS: BP 137/64; PULSE 70; RESP 18; TEMP 97.8; O2SAT 94
[2017-03-29] MEDS ORDERED: BISACODYL EC 5 MG TABEC PO PRN (16:00)
[2017-03-29] MEDS ORDERED: BISACODYL EC 5 MG TABEC PO ONE (16:45)
[2017-03-29 20:00] VITALS: BP 134/63; PULSE 70; RESP 17; TEMP 98.1; O2SAT 95
[2017-03-29] MEDS: TAMSULOSIN HCL 0.4 MG CAP PO SCH (20:57)
[2017-03-29] MEDS: ATORVASTATIN 20 MG TAB PO SCH (20:57)
[2017-03-29] MEDS: MONTELUKAST SODIUM 10 MG TAB PO SCH (20:58)
[2017-03-30] VITALS: BP 138/64; PULSE 70; RESP 17; TEMP 99.3; O2SAT 95
[2017-03-30 04:00] VITALS: BP 127/58; PULSE 70; RESP 17; TEMP 98.5; O2SAT 94
--- NOTE | 2017-03-30 06:56 | PD.ORT.PN ---
Subjective Post Op Day #: 3 Subjective Remarks He is doing well with the knee but not so well walking.. He has issues with balance. Not much pain. Range of Motion 0 to 98 degrees. Distance Walked 25 feet in AM; 20 and 45 feet in PM. Objective Vitals Vital Signs Date Time Temp Pulse Resp B/P Pulse Ox O2 Delivery O2 Flow Rate FiO2 03/30/17 04:00 98.5 70 17 127/58 94 03/30/17 00:00 99.3 70 17 138/64 95 03/29/17 20:00 98.1 70 17 134/63 95 03/29/17 15:45 97.8 70 18 137/64 94 03/29/17 11:34 95.6 70 18 132/65 96 03/29/17 07:00 98.9 70 18 121/59 92 I/O 03/29/17 03/29/17 03/29/17 03/30/17 03/30/17 03/30/17 07:00 15:00 23:00 07:00 15:00 23:00 Intake Total 240 ml 840 ml 240 ml Output Total 450 ml Balance -210 ml 840 ml 240 ml Intake Oral 240 ml 840 ml 240 ml Output Urine Total 450 ml # Voids 3 0 # Bowel Movements 0 0 0 Result Diagram: 03/29/17 0548 03/28/17 0650 Imaging Last 24 hours Impressions Knee X-Ray 03/27/17 0654 Signed Impressions: Service Date/Time: Monday, March 27, 2017 11:09 - CONCLUSION: Right knee arthroplasty. Isidoro Sena MD Objective Remarks Resting comfortably, supine in bed in the CPM. The neurovascular status is intact. The dressing is dry and intact. There is no erythema or induration. Assessment & Plan Ortho Post Op Day #: 3 Problem List: (1) Status post total right knee replacement Plan: Continue postop care and PT. Assessment and Plan Condition: Good. Orthopaedically stable. DVT prophylaxis: TEDs, sequentials, resume Eliquis. Discharge plans: [facility] or SNF for rehab, then home with [facility]. Has appointment. Rx: [place] 7.5/325. Scar Rodas MD ([place]) Mar 30, 2017 06:55
[2017-03-30 07:47] VITALS: PULSE 69
[2017-03-30 08:00] VITALS: BP 136/69; PULSE 70; RESP 18; TEMP 97.6; O2SAT 94
[2017-03-30] MEDS: SODIUM CHLORIDE 0.9% FLUSH 5 ML FLUSH IVF SCH (09:00)
[2017-03-30] MEDS: RIVASTIGMINE TARTRATE 1.5 MG CAP PO SCH ×2 (09:00→18:00)
[2017-03-30] MEDS: CARVEDILOL 6.25 MG TAB PO SCH (09:17)
[2017-03-30] MEDS: TOLTERODINE TARTRATE 2 MG CAP LA PO SCH (09:17)
[2017-03-30] MEDS: DOCUSATE SODIUM 100 MG CAP PO SCH (09:17)
[2017-03-30] MEDS: AMIODARONE 200 MG TAB PO SCH (09:17)
[2017-03-30] MEDS: APIXABAN 5 MG TABLET PO SCH (09:17)
[2017-03-30] MEDS: ACETAMINOPHEN/HYDROcodone 325 MG/7.5 MG TAB PO PRN ×2 (10:50→19:29)
[2017-03-30] MEDS: LACTATED RINGER'S 1000 ML INJ 1,000 ML IV SCH (11:00)
[2017-03-30 12:00] VITALS: BP 118/58; PULSE 70; RESP 18; TEMP 98; O2SAT 94
--- NOTE | 2017-03-30 12:20 | HHI.PR ---
Subjective Remarks Up in chair Awake alert talkative Morbid obesity Afebrile Objective Objective Results - Vital Signs Date Time Temp Pulse Resp B/P Pulse Ox O2 Delivery O2 Flow Rate FiO2 03/30/17 08:00 97.6 70 18 136/69 94 03/30/17 07:47 69 03/30/17 07:27 Room Air 03/30/17 04:00 98.5 70 17 127/58 94 03/30/17 00:00 99.3 70 17 138/64 95 03/29/17 20:00 98.1 70 17 134/63 95 03/29/17 15:45 97.8 70 18 137/64 94 I/O 03/29/17 03/29/17 03/29/17 03/30/17 03/30/17 03/30/17 07:00 15:00 23:00 07:00 15:00 23:00 Intake Total 240 ml 840 ml 240 ml 120 ml Output Total 450 ml 250 ml Balance -210 ml 840 ml 240 ml -130 ml Intake Oral 240 ml 840 ml 240 ml 120 ml Output Urine Total 450 ml 250 ml # Voids 3 0 # Bowel Movements 0 0 0 0 Result Diagram: 03/29/17 0548 03/28/17 0650 ROS General: Fatigue, Weakness, Other (10 point ROS done positives noted) GI: BM (some constipation bowel regimen) Neuro/MS: Other (pain management status post right total knee) Physical Exam Physical Exam PHYSICAL EXAMINATION GENERAL: This is a well-developed, obese male who appears to be in no acute distress. He is alert and awake, HEAD: Normocephalic without any lesion or mass noted. Facial features appear symmetric. OROPHARYNGEAL: Oropharynx without erythema or edema. NECK: Supple. Trachea midline without deviation. CARDIAC: Regular rhythm, regular rate, S1 and S2 are heard. LUNGS: Clear to auscultation bilaterally with deep inspiration. No rhonchi ABDOMEN: Soft, taut, Bowel sounds are heard in all four quadrants. EXTREMITIES: Right knee mild edema status post right total knee dressing clean dry and intact. Pulses equal bilateral. [] cyanosis. NEUROLOGICAL: Patient mood and affect appropriate. SKIN:Warm and moist A/P Assessment and Plan (1) Status post total right knee replacement (2) Primary osteoarthritis of right knee (3) Atrial fibrillation (4) CHF (congestive heart failure) (5) HTN (hypertension) (6) Pacemaker (7) COPD (chronic obstructive pulmonary disease) (8) Hx TIA/stroke w/o resid Assessment and Plan Vital signs reviewed, trends are normal patient is afebrile Labs reviewed, hemoglobin stable at 11.7 -Continue postoperative orthopedic care Eliquis, continue for DVT prophylaxis. -Pain management PRN -Physical therapy per orthopedic team Mild constipation bowel regimen, will order dose of mag citrate if needed pending discharge today Chronic congestive heart failure, stable Has AICD pacemaker History of A. fib, on Eliquis. Hypertension, stable Hyperlipidemia, history of TIA Medical management COPD, stable Continue with Ventolin inhaler when necessary Urinary retention, likely secondary to anesthesia, resolved with medical management of Flomax SCDs and Eliquis for DVT prophylaxis PT for mobility and strengthening, planned for [facility] CM for dc planning, planned for rehabilitation tentative today, bowel regimen D/W pt D/W Dr. Sims, seen on his behalf D/W RN D/W Katja Escobar Mar 30, 2017 12:20
[2017-03-30] MEDS ORDERED: MAGNESIUM CITRATE SOLN 300 ML BTL PO ONE (12:30)
[2017-03-30] MEDS ORDERED: BISACODYL 10 MG SUPP RECTAL PRN (14:00)
[2017-03-30 16:00] VITALS: BP 140/66; PULSE 70; RESP 18; TEMP 97; O2SAT 96
--- NOTE | 2017-03-31 16:54 | HHI.DS ---
Discharge Summary Admission Date Mar 27, 2017 at 05:16 Discharge Date: Mar 30, 2017 Admitting Diagnosis (1) Status post total right knee replacement (2) Primary osteoarthritis of right knee Diagnosis: Principal (3) Atrial fibrillation Diagnosis: Secondary (4) CHF (congestive heart failure) Diagnosis: Secondary (5) HTN (hypertension) Diagnosis: Secondary (6) Pacemaker Diagnosis: Secondary (7) COPD (chronic obstructive pulmonary disease) Diagnosis: Secondary (8) Hx TIA/stroke w/o resid Diagnosis: Secondary Procedures Revision of total right knee replacement Brief History This was a pleasant 76-year-old white male with significant past medical history of A. fib, CHF, AICD pacemaker, TIA, PATIENT SAFETY COORDINATOR shunt, prostate cancer. Patient had history of osteoarthritis of the right knee, he was admitted and underwent right total knee arthroplasty. Patient tolerated procedure well, he has minimal pain. Patient's cribber is Dr. Mary, he was cleared for surgery. Patient is on Eliquis, he stopped medication several days in preparation for surgery. Hospitalist services are requested for medical management. CBC/BMP: 03/29/17 0548 03/28/17 0650 Significant Findings Laboratory Tests Test 03/29/17 05:48 Hemoglobin 11.7 GM/DL (13.0-17.0) Hematocrit 35.0 % (39.0-51.0) Imaging Last Impressions Knee X-Ray 03/27/17 0654 Signed Impressions: Service Date/Time: Monday, March 27, 2017 11:09 - CONCLUSION: Right knee arthroplasty. Isidoro Sena MD PE at Discharge PHYSICAL EXAMINATION GENERAL: This is a well-developed, obese male who appears to be in no acute distress. He is alert and awake, HEAD: Normocephalic without any lesion or mass noted. Facial features appear symmetric. OROPHARYNGEAL: Oropharynx without erythema or edema. NECK: Supple. Trachea midline without deviation. CARDIAC: Regular rhythm, regular rate, S1 and S2 are heard. LUNGS: Clear to auscultation bilaterally with deep inspiration. No rhonchi ABDOMEN: Soft, taut, Bowel sounds are heard in all four quadrants. EXTREMITIES: Right knee mild edema status post right total knee dressing clean dry and intact. Pulses equal bilateral. [] cyanosis. NEUROLOGICAL: Patient mood and affect appropriate. SKIN:Warm and moist Hospital Course These are the diagnoses that were used to treat this patient during hospital course (1) Status post total right knee replacement (2) Primary osteoarthritis of right knee (3) Atrial fibrillation (4) CHF (congestive heart failure) (5) HTN (hypertension) (6) Pacemaker (7) COPD (chronic obstructive pulmonary disease) (8) Hx TIA/stroke w/o resid Vital signs reviewed, trends are normal patient is afebrile Labs reviewed, hemoglobin stable at 11.7 -Continue postoperative orthopedic care Eliquis, continue for DVT prophylaxis. -Pain management PRN -Physical therapy per orthopedic team Mild constipation bowel regimen, dose of mag citrate ordered if patient needed before discharge Chronic congestive heart failure, stable Has AICD pacemaker History of A. fib, on Eliquis. Hypertension, stable Hyperlipidemia, history of TIA Medical management COPD, stable Continue with Ventolin inhaler when necessary Urinary retention, likely secondary to anesthesia, resolved with medical management of Flomax SCDs and Eliquis for DVT prophylaxis PT for mobility and strengthening, planned for [facility] CM for dc planning, planned for rehabilitation tentative today, bowel regimen Patient was medically stable for discharge Pt Condition on Discharge: Good Discharge Disposition: Disch w/ Home Health Serv Discharge Instructions DIET: Follow Instructions for: As Tolerated, No Restrictions Activities you can perform: Full Weight Bearing, Shower/Bath Activities to Avoid: Lifting/Bending, Strenuous Activity, Bathing, Driving Follow up Referrals: Orthopedics with Scar Rodas MD ([place]) SNF/HALF-WAY/HH with TCU at [facility] New Medications: Hydrocodone-Acetaminophen (Hydrocodone-Acetaminophen) 7.5-325 mg Tab 1 TAB PO Q4H PRN PAIN SCALE 1 TO 10 #50 TAB Continued Medications: Albuterol 8.5 GM Inh (Proair Hfa 8.5 GM Inh) 90 Mcg/Act Aer 1 PUFF INH Q4H 108 mcg/actuation PRN SHORTNESS OF BREATH #1 Ref 0 INHALER Amiodarone (Amiodarone) 200 Mg Tab 200 MG PO DAILY Regulate Heart Beat #30 Ref 0 TAB Apixaban (Eliquis) 2.5 Mg Tab 5 MG PO BID Blood Clot Prevention Ref 0 TAB Atorvastatin (Lipitor) 20 Mg Tab 20 MG PO HS Cholesterol Management #30 Ref 0 TAB Carvedilol (Carvedilol) 6.25 Mg Tab 6.25 MG PO BID #60 Ref 0 TAB Docusate Sodium (Colace) 100 Mg Capsule 100 MG PO DAILY Fluticasone-Vilanterol Inh (Breo Ellipta Inh) 100-25 Mcg/Act Inh 1 PUFF INH DAILY Use daily at the same time. #1 Ref 0 INHALER Mirabegron (Myrbetriq) 25 Mg Tab 25 MG PO DAILY Urinary Symptom Managemen #30 Ref 0 TAB Montelukast (Singulair) 10 Mg Tab 10 MG PO HS #30 Ref 0 TAB Rivastigmine (Rivastigmine) 1.5 Mg Cap 3 MG PO BIDPC Dementia #60 Ref 0 CAP Tamsulosin (Flomax) 0.4 Mg Cap 0.8 MG PO HS Manage Prostate Problems #60 Ref 0 CAP Katja Garcia Mar 31, 2017 16:54
== END 2017-03-30 19:56 | DRG 470 ==
LOC: HSDI 03-27 05:16 → N06B 03-27 16:13
PROVIDERS: ADMIT Orthopaedic Surgery; ATTEND Orthopaedic Surgery
PROC: 3E0T3CZ (ICD-10-PCS; 2017-03-27)
PROC: 0SRC0JA Replacement of Right Knee Joint with Synthetic Substitute, Uncemented, Open Approach (ICD-10-PCS; principal; 2017-03-27 06:46)
DX: M17.11 Unilateral primary osteoarthritis, right knee (principal); I50.9 Heart failure, unspecified; Z68.41 Body mass index [BMI] 40.0-44.9, adult; I11.0 Hypertensive heart disease with heart failure; I48.2 Chronic atrial fibrillation; J44.9 Chronic obstructive pulmonary disease, unspecified; E78.5 Hyperlipidemia, unspecified; R33.9 Retention of urine, unspecified; J45.909 Unspecified asthma, uncomplicated; K59.00 Constipation, unspecified; E66.01 Morbid (severe) obesity due to excess calories; Z95.0 Presence of cardiac pacemaker; Z86.73 Personal history of transient ischemic attack (TIA), and cerebral infarction without residual deficits; Z98.2 Presence of cerebrospinal fluid drainage device; Z85.46 Personal history of malignant neoplasm of prostate; Z95.810 Presence of automatic (implantable) cardiac defibrillator
CPT/HCPCS: 73560; 80048; 83735; 84100; 85014; 85018; 86850; 86900; 86901; 94150; C1776; C9290; J0131; J0690; J1100; J1580; J1885; J2250; J2270; J2405; J2710; J3010; J7120

== ENCOUNTER → 2017-03-17 | Outpatient (CLI) | payer MEDICARE ==
[~2017-03-17] MED LIST: ALBUAER3 INH; AMIO200T PO; APIX2.5T PO; CARV6.252 PO; COLA100C PO; FLUT1INH INH; HYDR-3580 PO; LIPI20TA PO; MIRA25TA PO; MONT10TA2 PO; RIVA1.5C PO; TAMS5CAP PO
[2017-03-17 10:07] LABS: HEMATOCRIT 44.1 % (39.0-51.0); MEAN CORPUSCULAR HEMOGLOBIN 29.7 PG (27.0-34.0); MEAN CORPUSCULAR HGB CONC 33.8 % (32.0-36.0); PLATELET COUNT 182 TH/MM3 (150-450); RED BLOOD COUNT 5.01 MIL/MM3 (4.50-5.90); RED CELL DISTRIBUTION WIDTH 14.8 % (11.6-17.2); REVIEW FLAG FINAL; WHITE BLOOD COUNT 5.8 TH/MM3 (4.0-11.0)
[2017-03-17 10:16] LABS: PROTHROMBIN TIME - PATIENT 11.4 SEC (9.8-11.6)
[2017-03-17 10:27] LABS: BICARBONATE 32.4 MEQ/L (21.0-32.0); POTASSIUM 4.3 MEQ/L (3.5-5.1)
[2017-03-17 10:53] LABS: BLOOD, URINE NEG (NEG); GLUCOSE,URINE NEG (NEG); KETONE, URINE NEG (NEG); NITRITE,URINE NEG (NEG); PH, URINE 7.5 (5.0-8.5); SQUAMOUS EPITHELIAL CELL URINE <1 /hpf (0-5); URINE COLOR YELLOW (YELLW/STRAW)
[2017-03-17 10:57] LABS: COMMENT (UR) CULT NOT INDICATED; CULTURE IF INDICATED CULT NOT INDICATED
--- NOTE | 2017-03-18 16:59 | EKG ---
Date Performed: 03/17/2017 Time Performed: 11:41:10 PTAGE: 76 years EKG: ELECTRONIC ATRIAL PACEMAKER ELECTRONIC VENTRICULAR PACEMAKER ABNORMAL RHYTHM ECG NO PREVIOUS TRACING DOCTOR: Eligio Matamoros Interpretating Date/Time 03/18/2017 16:58:32
== END ==
LOC: CPRE 09:07
PROVIDERS: ATTEND Orthopaedic Surgery
DX: Z01.810 Encounter for preprocedural cardiovascular examination (principal); Z01.812 Encounter for preprocedural laboratory examination; M17.11 Unilateral primary osteoarthritis, right knee; M79.609 Pain in unspecified limb; R94.31 Abnormal electrocardiogram [ECG] [EKG]
CPT/HCPCS: 36415; 80048; 81001; 85027; 85610; 85730; 93005